=== PATIENT | female | born 2005 | race Caucasian/White ===

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

== ENCOUNTER 2024-08-06 03:45 | Emergency (ER) | payer OTHER ==
[~2024-08-06] VITALS: Ht 157.5 cm; Wt 90.7 kg
[~2024-08-06 03:45] MED LIST: ONDANSETRON ODT4 MG PO; PEPCID20 MG PO
[2024-08-06 04:00] VITALS: TEMP 98.3
[2024-08-06 04:17] LABS: BASOPHILS % 0.3 % (0.0-1.0); EOSINOPHILS # (AUTO) 0.1 (0.0-0.4); EOSINOPHILS % 1.4 % (0.0-6.0); HEMATOCRIT 34.6 % (34.2-44.1); HEMOGLOBIN 11.3 g/dL (12.0-16.0); LYMPHOCYTES # (AUTO) 3.7 (1.0-3.2); LYMPHOCYTES % 39.9 % (18.0-39.1); MEAN CORPUSCULAR HEMOGLOBIN 31.3 pg (28-32); MEAN CORPUSCULAR HGB CONC 32.7 g/dL (31-35); MEAN CORPUSCULAR VOLUME 95.8 fL (81-99); MONOCYTES # (AUTO) 0.6 (0.2-0.8); MONOCYTES % 6.6 % (4.4-11.3); NEUTROPHILS # (AUTO) 4.8 (2.1-6.9); NEUTROPHILS % 51.6 % (38.7-80.0); PLATELET COUNT 277 x10e3/uL (140-360); RED BLOOD COUNT 3.61 x10e6/uL (3.6-5.1); WHITE BLOOD COUNT 9.23 x10e3/uL (4.8-10.8)
[2024-08-06] MEDS: SODIUM CHLORIDE 0.9% 1000ML 1,000 ML IV ONE (04:27)
[2024-08-06] MEDS: KETOROLAC TROMETHAMINE 30 MG/ML VIAL IV STA (04:27)
[2024-08-06] MEDS: ONDANSETRON HCL INJ 2MG/ML 2ML 2 MG/ML VIAL IV STA (04:27)
[2024-08-06 04:29] LABS: ALANINE AMINOTRANSFERASE 13 IU/L (0-55); ALBUMIN 3.9 g/dL (3.5-5.0); ALBUMIN/GLOBULIN RATIO 1.4 (0.8-2.0); ALKALINE PHOSPHATASE 49 IU/L (40-150); ANION GAP 13.4 mmol/L (8-16); BILIRUBIN,TOTAL 0.5 mg/dL (0.2-1.2); BLOOD UREA NITROGEN 11 mg/dL (7-26); BUN/CREATININE RATIO 15 (6-25); CALCIUM 8.8 mg/dL (8.4-10.2); CARBON DIOXIDE 24 mmol/L (22-29); CHLORIDE 106 mmol/L (98-107); CREATININE, SERUM 0.71 mg/dL (0.57-1.11); EST GLOMERULAR FILTRATION RATE 125 ML/MIN (>=60); GLUCOSE 113 mg/dL (74-118); LIPASE 26 U/L (8-78); SODIUM 140 mmol/L (136-145); TOTAL PROTEIN 6.7 g/dL (6.5-8.1)
[2024-08-06 04:33] LABS: POTASSIUM 3.4 mmol/L (3.5-5.1)
[2024-08-06] MEDS ORDERED: IOPAMIDOL 370 MG/ML 100 ML INFUS..BTL INJ ONE (04:34)
[2024-08-06 04:38] LABS: BACTERIA,URINE MANY /HPF; CLARITY,URINE CLOUDY (CLEAR); COLOR,URINE YELLOW (YELLOW); EPITHELIAL CELLS,URINE MANY /LPF; LEUKOCYTE ESTERASE ,URINE NEGATIVE (NEGATIVE); NITRITE,URINE NEGATIVE (NEGATIVE); PH,URINE 6 (5 - 7); RBC,URINE 0-5 /HPF (0-5); WBC,URINE (MAN) 0-5 /HPF (0-5)
[2024-08-06 04:39] LABS: BILIRUBIN,URINE 1+ (NEGATIVE); GLUCOSE, URINE NEGATIVE (NEGATIVE); KETONES,URINE NEGATIVE (NEGATIVE); PROTEIN,URINE DIPSTICK 1+ (NEGATIVE); URINE UROBILINOGEN 0.2 mg/dL (0.2 - 1)
[2024-08-06] MEDS ORDERED: ONDANSETRON ODT4 MG PO (09:12)
[2024-08-06] MEDS ORDERED: PANTOPRAZOLE SO40 MG PO (09:12)
[2024-08-06] MEDS ORDERED: DICYCLOMINE HCL20 MG PO (09:12)
[2024-08-06 09:20] VITALS: PULSE 65; RESP 16; O2SAT 97
== END 2024-08-06 09:45 | disposition home or self-care (01) ==
LOC: ER 03:50
DX: R10.13 Epigastric pain (principal); K80.50 Calculus of bile duct without cholangitis or cholecystitis without obstruction; K82.9 Disease of gallbladder, unspecified; R11.2 Nausea with vomiting, unspecified; I10 Essential (primary) hypertension; F41.9 Anxiety disorder, unspecified; F32.A Depression, unspecified; E28.2 Polycystic ovarian syndrome; Z98.84 Bariatric surgery status
CPT/HCPCS: 36415; 74177; 76705; 80053; 81001; 83690; 84702; 85025; 99284; J1885; J2405; Q9967

== ENCOUNTER 2024-09-05 19:30 | Emergency (ER) | payer OTHER ==
[~2024-09-05] VITALS: Ht 157.5 cm; Wt 90.7 kg
[~2024-09-05 19:30] MED LIST changes: +DICYCLOMINE HCL20 MG PO; +PANTOPRAZOLE SO40 MG PO
[2024-09-05 19:40] VITALS: PULSE 66; RESP 18; TEMP 98.8
[2024-09-05] MEDS ORDERED: MEDROL4 M2 PO (20:21)
[2024-09-05 20:34] VITALS: BP 118/65; PULSE 74; RESP 18; TEMP 98.3; O2SAT 98
== END 2024-09-05 20:35 | disposition home or self-care (01) ==
LOC: ER 20:20
DX: M25.532 Pain in left wrist (principal); M25.531 Pain in right wrist; G56.03 Carpal tunnel syndrome, bilateral upper limbs; I10 Essential (primary) hypertension; E28.2 Polycystic ovarian syndrome; F41.9 Anxiety disorder, unspecified; F32.A Depression, unspecified; Z98.84 Bariatric surgery status
CPT/HCPCS: 99283